=== PATIENT | male | born 2000 | race African-American/Black ===

== ENCOUNTER 2023-04-12 13:49 | Emergency (ER) | payer SELFPAY | END 2023-04-12 14:16 | LOC: DL.ED 13:49 | DX: Z53.21 Procedure and treatment not carried out due to patient leaving prior to being seen by health care provider (principal) ==

== ENCOUNTER 2025-03-07 23:09 | Emergency (ER) | payer MEDICAID | END 2025-03-07 23:30 | LOC: DL.ED 23:09 | DX: T46.5X1A Poisoning by other antihypertensive drugs, accidental (unintentional), initial encounter (principal); Z79.899 Other long term (current) drug therapy | CPT/HCPCS: 99284 ==